=== PATIENT | female | born 1980 | race Asian ===

== ENCOUNTER 2017-10-10 17:13 | Inpatient (IN) | payer SELFPAY ==
[~2017-10-10] VITALS: Ht 162 cm; Wt 64.9 kg
[2017-10-10] MEDS ORDERED: LR 1,000 ML IV ONE (17:36)
[2017-10-10] MEDS ORDERED: CEFAZOLIN 2 GM IVPB PREMIX 50 ML IV ONE (17:45)
[2017-10-10 18:07] LABS: BASOPHILS % (AUTO) 0.4 % (0.0-2.0); EOSINOPHILS % (AUTO) 0.3 % (0.0-4.0); HEMATOCRIT 33.3 % (36-48); HEMOGLOBIN 11.1 g/dL (12.0-16.0); LYMPHOCYTES % (AUTO) 9.8 % (20.5-51.5); MEAN CORPUSCULAR HEMOGLOBIN 27 pg (27-31); MEAN CORPUSCULAR HGB CONC 33 % (32-36); MEAN CORPUSCULAR VOLUME 81 fL (79.0-98.0); MONOCYTES % (AUTO) 5.2 % (1.7-9.3); NEUTROPHILS % (AUTO) 84.3 % (40.0-70.0); PLATELET COUNT (AUTO) 363 K/uL (130-430); RED BLOOD CELL COUNT(AUTO) 4.11 MIL/uL (4.2-6.2); RED CELL DISTRIBUTION WIDTH 18.2 % (9.0-15.0)
[2017-10-10 18:08] LABS: MONOCYTES # (AUTO) 0.5 K/uL (0.0-1.0); NEUTROPHILS # (AUTO) 8.5 K/uL (1.8-7.7)
[2017-10-10 18:55] VITALS: BP_SYST 122
[2017-10-10] MEDS ORDERED: LR 1,000 ML IV SCH (20:21)
[2017-10-10] MEDS ORDERED: ONDANSETRON HCL 4 MG/2 ML VIAL IVP PRN (20:30)
[2017-10-10] MEDS ORDERED: KETOROLAC TROMETHAMINE 60 MG/2 ML VIAL IM PRN (20:30)
[2017-10-10] MEDS ORDERED: NALOXONE HCL 0.4 MG/ML AMP (NARCAN) IVP PRN (20:30)
[2017-10-10] MEDS ORDERED: MORPHINE SULFATE 10MG/10ML PF AMP SP SCH (20:30)
[2017-10-10] MEDS ORDERED: METOCLOPRAMIDE HCL 10 MG/2 ML VIAL IVP PRN (20:30)
[2017-10-10] MEDS ORDERED: DIPHENHYDRAMINE INJ 50 MG/ML VIAL IM PRN (20:30)
[2017-10-10] MEDS ORDERED: OXYTOCIN/NORMAL SALINE 1,000 ML IV ONE (21:01)
[2017-10-10 21:19] VITALS: BP_SYST 112
[2017-10-10] MEDS ORDERED: MORPHINE SULFATE 10MG/10ML PF AMP EP ONE (21:55)
[2017-10-10] MEDS ORDERED: BUPIVACAINE /PF 0.75% 10 ML VIAL INJ ONE (21:55)
[2017-10-10] MEDS ORDERED: OXYTOCIN 10 UNIT/ML VIAL IV ONE (21:55)
[2017-10-10] MEDS ORDERED: MIDAZOLAM HCL 5 MG/ML VIAL (VERSED) IV ONE (21:55)
[2017-10-10] MEDS ORDERED: ONDANSETRON HCL 4 MG/2 ML VIAL IVP ONE (21:55)
[2017-10-10] MEDS ORDERED: LR 1,000 ML IV.SOLN IV ONE (21:55)
[2017-10-10] MEDS ORDERED: NS IRRIG SOLN 1000 ML IR ONE (21:55)
[2017-10-11] MEDS ORDERED: OXYTOCIN/NORMAL SALINE 1,000 ML IV ONE ×2 (01:31→02:00)
[2017-10-11] MEDS ORDERED: LANOLIN 7 GM OINT. TP PRN (02:00)
[2017-10-11] MEDS ORDERED: LR 1,000 ML IV SCH (02:00)
[2017-10-11] MEDS ORDERED: DOCUSATE SODIUM 100 MG CAPSULE PO PRN (02:00)
[2017-10-11] MEDS ORDERED: SIMETHICONE 80 MG TAB.CHEW PO PRN (02:00)
[2017-10-11] MEDS ORDERED: MEASLES,MUMPS&RUBELLA VACC/PF 12500 UNIT/0.5 ML VIAL SUBQ PRN (02:00)
[2017-10-11] MEDS ORDERED: ceFAZolin SODIUM 1 GM VIAL ONE (02:23)
[2017-10-11] MEDS: CEFAZOLIN 1 GM IVPB PREMIX 50 ML IV SCH ×3 (02:26→15:43)
[2017-10-11 07:02] LABS: EOSINOPHILS % (AUTO) 0.2 % (0.0-4.0); HEMATOCRIT 28.9 % (36-48); HEMOGLOBIN 9.5 g/dL (12.0-16.0); LYMPHOCYTES # (AUTO) 1.1 K/uL (1.0-5.5); LYMPHOCYTES % (AUTO) 9.6 % (20.5-51.5); MEAN CORPUSCULAR HEMOGLOBIN 27 pg (27-31); MEAN CORPUSCULAR HGB CONC 33 % (32-36); MEAN CORPUSCULAR VOLUME 83 fL (79.0-98.0); MONOCYTES # (AUTO) 0.7 K/uL (0.0-1.0); MONOCYTES % (AUTO) 6.1 % (1.7-9.3); NEUTROPHILS # (AUTO) 9.5 K/uL (1.8-7.7); NEUTROPHILS % (AUTO) 84.1 % (40.0-70.0); PLATELET COUNT (AUTO) 331 K/uL (130-430); RED CELL DISTRIBUTION WIDTH 18.1 % (9.0-15.0); WHITE BLOOD COUNT (AUTO) 11.3 K/uL (4.8-10.8)
[2017-10-11] MEDS ORDERED: HYDROcodone/ACETAMIN 5-325 MG TAB (NORCO/ VICODIN) PO PRN (13:30)
[2017-10-11] MEDS ORDERED: OXYCODONE/ACETAMINOPHEN 5-325 TABLET PO PRN ×2 (13:30)
[2017-10-11] MEDS: IBUPROFEN 600 MG TABLET PO SCH ×2 (19:05→23:50)
[2017-10-12] MEDS: IBUPROFEN 600 MG TABLET PO SCH ×3 (05:45→17:53)
[2017-10-13] MEDS: IBUPROFEN 600 MG TABLET PO SCH (08:25)
== END 2017-10-13 10:30 | disposition home or self-care (01) | DRG 766 ==
LOC: SPU 17:13
PROVIDERS: ADMIT Obstetrics & Gynecology; ATTEND Obstetrics & Gynecology
PROC: 10D00Z1 Extraction of Products of Conception, Low, Open Approach (ICD-10-PCS; principal; 2017-10-10 19:30)
DX: O41.03X0 Oligohydramnios, third trimester, not applicable or unspecified (principal); O09.513 Supervision of elderly primigravida, third trimester; O69.81X0 Labor and delivery complicated by cord around neck, without compression, not applicable or unspecified; Z37.0 Single live birth; Z3A.39 39 weeks gestation of pregnancy
CPT/HCPCS: 36415; 81002-TC; 85025; 86886; 86900; 86901; 94760; J0690; J2250; J2274; J2405; J2590; J3490; J7120